=== PATIENT | female | born 1935 | race Caucasian/White ===

== ENCOUNTER → 2016-07-26 | Outpatient (CLI) | payer MEDICARE ==
[~2016-07-26] MED LIST: ALLO100T30 PO; AMLO10TA2 PO; ASPI-496 PO; ATOR20TA9 PO; CLOP75TA PO; DIPH1TAB PO; FENO45CA2 PO; FERR325C PO; FERR325T20 PO; FLUT1BLS INH; FURO-92 PO; GABA300C PO; GLIP10TA13 PO; HYDR-3307 PO; INSU100V13 SC; ISOS30TA8 PO; LEVO100T8 PO; LOSA25TA2 PO; MECL-85 PO; METO25TA35 PO; PROM25TA10 PO; RALO60TA PO; SITA25TA PO; TIOT18CA INH; UMEC62.5 INH
[2016-07-26 13:26] LABS: PTH INTACT INTERPRETATION ** Comment **
[2016-07-26 13:49] LABS: HEMOGLOBIN 12.9 g/dL (11.7-16.4)
[2016-07-26 13:52] LABS: PATH.CAST-FLAG NOT PRESENT; SPERM-FLAG NOT PRESENT; SRC-FLAG NOT PRESENT; XTAL-FLAG NOT PRESENT; YLC-FLAG NOT PRESENT
[2016-07-26 14:06] LABS: PARATHYROID HORMONE INTACT 73.1 pg/mL (14-72)
[2016-07-26 15:08] LABS: ASPARTATE AMINO TRANSFERASE 41 U/L (15-37); BLOOD UREA NITROGEN 36 mg/dL (7-18)
== END | disposition home or self-care (01) ==
LOC: LAB 13:17
PROVIDERS: ATTEND Internal Medicine Nephrology
DX: I12.9 Hypertensive chronic kidney disease with stage 1 through stage 4 chronic kidney disease, or unspecified chronic kidney disease (principal); E11.22 Type 2 diabetes mellitus with diabetic chronic kidney disease; N18.3 Chronic kidney disease, stage 3 (moderate); M10.9 Gout, unspecified; R80.3 Bence Jones proteinuria; E03.9 Hypothyroidism, unspecified; E78.2 Mixed hyperlipidemia; Z79.899 Other long term (current) drug therapy
CPT/HCPCS: 36415; 80053; 80061; 81001; 82306; 82310; 82570; 83036; 83970; 84100; 84156; 84443; 84550; 85025; 87077; 87086

== ENCOUNTER 2018-04-01 14:56 | Inpatient (IN) | payer MEDICARE ==
[~2018-04-01] VITALS: Ht 152.4 cm; Wt 156.3 kg
[~2018-04-01 14:56] MED LIST changes: -AMLO10TA2 PO; +AMLO10TA6 PO; +ATOR20TA37 PO; -ATOR20TA9 PO; +FERR325T18 PO; -FERR325T20 PO
[2018-04-01] MEDS ORDERED: DILTIAZEM 125 MG in DEXTROSE 5% 100 ML IV SCH (15:28)
[2018-04-01] MEDS ORDERED: SODIUM CHLORIDE FLUSH 10ML SYR IVF ONE (15:30)
[2018-04-01] MEDS ORDERED: DILTIAZEM 5 MG/ML, 5ML IV ONE (15:30)
[2018-04-01] MEDS ORDERED: DILTIAZEM 5 MG/ML, 5ML ONE (15:40)
[2018-04-01 16:03] LABS: BASOPHILS # (AUTO) 0.01 x10^3/uL (0-0.1); BASOPHILS % (AUTO) 0 % (0-1); EOSINOPHILS # (AUTO) 0.04 x10^3/uL (0-0.4); EOSINOPHILS % (AUTO) 1 % (1-7); LYMPHOCYTES # (AUTO) 1.08 x10^3/uL (1-3.4); LYMPHOCYTES % (AUTO) 13 % (22-44); MD NO; MEAN CORPUSCULAR HEMOGLOBIN 29.7 pg (27.0-34.8); MEAN CORPUSCULAR HGB CONC 32.3 g/dL (32.4-35.8); MEAN CORPUSCULAR VOLUME 92.1 fL (80-100); MONOCYTES # (AUTO) 0.81 x10^3/uL (0.2-0.8); MONOCYTES % (AUTO) 10 % (2-9); NEUTROPHILS # (AUTO) 6.42 x10^3/uL (1.8-6.8); NEUTROPHILS % (AUTO) 77 % (42-75); PLATELET COUNT 144 x10^3/uL (130-400); RED BLOOD COUNT 4.49 x10^6/uL (3.82-5.3); RED CELL DISTRIBUTION WIDTH 14.3 % (9.6-15.2)
[2018-04-01 16:16] LABS: ALBUMIN 3.3 g/dL (3.4-5.0); ANION GAP 10 mmol/L (5-15); CALCIUM 9.5 mg/dL (8.5-10.1); CHLORIDE 103 mmol/L (98-107)
[2018-04-01 16:19] LABS: INTERNATIONAL NORMALIZED RATIO 1.05 (0.93-1.1); PROTHROMBIN TIME 11.1 Seconds (9.6-11.5)
[2018-04-01 16:22] LABS: ALANINE AMINOTRANSFERASE 37 U/L (12-78); ALKALINE PHOSPHATASE 59 U/L (45-117); BILIRUBIN,TOTAL 0.4 mg/dL (0.2-1.0); CREATININE 1.78 mg/dL (0.55-1.02); FREE T4 (FREE THYROXINE) 1.45 ng/dL (0.76-1.46); TOTAL PROTEIN 7.6 g/dL (6.4-8.2); TROPONIN I < 0.015 ng/mL (0.000-0.045)
[2018-04-01] MEDS ORDERED: FURO40TA6 PO (16:36)
[2018-04-01] MEDS ORDERED: LEVO112T4 PO (16:36)
[2018-04-01] MEDS ORDERED: DIPH1TAB PO (16:36)
[2018-04-01] MEDS ORDERED: PANT40TA5 PO (16:36)
[2018-04-01 17:24] LABS: CULTURE INDICATED? YES; MICROSCOPIC INDICATED
[2018-04-01] MEDS ORDERED: SODIUM CHLORIDE FLUSH 10ML SYR IVF PRN (17:30)
[2018-04-01 19:00] VITALS: BP 136/90
[2018-04-01] MEDS ORDERED: CAPTOPRIL 12.5 MG TABLET PO PRN (19:30)
[2018-04-01] MEDS ORDERED: hydrALAzine 20 MG/ML, 1ML IVPush PRN (19:30)
[2018-04-01] MEDS ORDERED: BISACODYL 10 MG SUPP PR PRN (19:30)
[2018-04-01] MEDS ORDERED: ENALAPRILAT 1.25 MG/ML, 2ML IVPush PRN (19:30)
[2018-04-01] MEDS ORDERED: ONDANSETRON 2MG/ML, 2ML IV PRN (19:30)
[2018-04-01] MEDS ORDERED: MAGNESIUM SULFATE PMX 2GM/50ML 50 ML IV ONE (19:30)
[2018-04-01] MEDS ORDERED: ACETAMINOPHEN 650 MG/20.3 ML UDC PO PRN (19:30)
[2018-04-01 20:28] LABS: CHOLESTEROL, TOTAL 139 mg/dL (140-239); TRIGLYCERIDES 125 mg/dL (50-200); VLDL CHOLESTEROL 25 mg/dL (0-25)
[2018-04-01] MEDS: CEPHALEXIN 500 MG CAPSULE PO SCH (20:29)
[2018-04-01] MEDS: ALLOPURINOL 100 MG TABLET PO SCH (20:30)
[2018-04-01 20:31] LABS: CHOL/HDL RATIO 4.1; HDL CHOL % 24 % (28-40); HDL CHOLESTEROL (DIRECT) 34 mg/dL (40-60); LDL CHOLESTEROL,CALCULATED 80 mg/dL (54-169); LDL/HDL RATIO 2.4 (0.5-3.0); TROPONIN I < 0.015 ng/mL (0.000-0.045)
[2018-04-01] MEDS: FUROSEMIDE 40 MG TABLET PO SCH (20:31)
[2018-04-01] MEDS: GABAPENTIN 300 MG CAPSULE PO SCH (20:31)
[2018-04-01] MEDS: INSULIN LISPRO 100 UNITS/ML, PEN SQ-INSULIN SCH (20:59)
[2018-04-01] MEDS ORDERED: METOPROLOL TARTRATE 25 MG TABLET PO SCH (21:00)
[2018-04-02 01:23] LABS: TROPONIN I < 0.015 ng/mL (0.000-0.045)
[2018-04-02 03:55] VITALS: BP 125/79
[2018-04-02] MEDS: CEPHALEXIN 500 MG CAPSULE PO SCH ×2 (05:17→17:55)
[2018-04-02 05:21] LABS: BASOPHILS # (AUTO) 0.02 x10^3/uL (0-0.1); BASOPHILS % (AUTO) 0 % (0-1); EOSINOPHILS % (AUTO) 1 % (1-7); LYMPHOCYTES # (AUTO) 1.38 x10^3/uL (1-3.4); LYMPHOCYTES % (AUTO) 19 % (22-44); MD NO; MEAN CORPUSCULAR HEMOGLOBIN 30.2 pg (27.0-34.8); MEAN CORPUSCULAR HGB CONC 33.1 g/dL (32.4-35.8); MEAN CORPUSCULAR VOLUME 91.4 fL (80-100); MONOCYTES # (AUTO) 0.82 x10^3/uL (0.2-0.8); MONOCYTES % (AUTO) 11 % (2-9); NEUTROPHILS # (AUTO) 4.95 x10^3/uL (1.8-6.8); NEUTROPHILS % (AUTO) 68 % (42-75); PLATELET COUNT 134 x10^3/uL (130-400); RED BLOOD COUNT 4.06 x10^6/uL (3.82-5.3); RED CELL DISTRIBUTION WIDTH 13.9 % (9.6-15.2)
[2018-04-02 05:25] LABS: ANION GAP 9 mmol/L (5-15); CALCIUM 8.8 mg/dL (8.5-10.1); CHLORIDE 103 mmol/L (98-107)
[2018-04-02 05:33] LABS: TROPONIN I < 0.015 ng/mL (0.000-0.045)
[2018-04-02 05:36] LABS: HEMOGLOBIN A1C 9.1 % (4.2-6.3)
[2018-04-02] MEDS: ALBUTEROL/IPRATROPIUM 2.5MG/0.5MG, 3 ML NPPB SCH ×4 (06:45→20:00)
[2018-04-02] MEDS: INSULIN LISPRO 100 UNITS/ML, PEN SQ-INSULIN SCH ×4 (07:46→21:28)
[2018-04-02 08:00] VITALS: BP 92/66
[2018-04-02] MEDS ORDERED: ACETAMINOPHEN 325 MG TABLET PO PRN (08:30)
[2018-04-02] MEDS ORDERED: CLOPIDOGREL 75 MG TABLET PO SCH (09:00)
[2018-04-02] MEDS ORDERED: ATORVASTATIN 20 MG TABLET PO SCH (09:00)
[2018-04-02 09:40] VITALS: BP 107/73
[2018-04-02] MEDS: METOPROLOL TARTRATE 25 MG TABLET PO SCH ×2 (10:05→21:27)
[2018-04-02] MEDS: ISOSORBIDE MONONITRATE ER 30 MG TABLET PO SCH (10:05)
[2018-04-02] MEDS: LEVOTHYROXINE 112 MCG TABLET PO SCH (10:05)
[2018-04-02] MEDS: GABAPENTIN 300 MG CAPSULE PO SCH ×3 (10:05→21:27)
[2018-04-02] MEDS: ALLOPURINOL 100 MG TABLET PO SCH ×2 (10:05→21:27)
[2018-04-02] MEDS: NYSTATIN TOPICAL POWDER 15GM TP SCH ×2 (10:06→21:28)
[2018-04-02] MEDS: FUROSEMIDE 40 MG TABLET PO SCH ×2 (10:06→21:28)
[2018-04-02] MEDS: PANTOPROZOLE 40MG TABLET PO SCH (11:35)
[2018-04-02 13:44] VITALS: BP 140/77
[2018-04-02] MEDS ORDERED: DILTIAZEM 125 MG in DEXTROSE 5% 100 ML IV SCH (15:28)
[2018-04-02] MEDS ORDERED: POTASSIUM CHLORIDE 20 MEQ TAB.ER.PRT PO SCH (17:00)
[2018-04-02] MEDS ORDERED: RIVAROXABAN 20 MG TABLET PO SCH (17:00)
[2018-04-02] MEDS: RIVAROXABAN 15 MG TABLET PO SCH (17:55)
[2018-04-02 19:41] VITALS: BP 120/67
[2018-04-02 21:24] VITALS: BP 101/68
[2018-04-02] MEDS: ATORVASTATIN 20 MG TABLET PO SCH (21:27)
[2018-04-02] MEDS: INSULIN NPH HUMAN 100 UNIT/ML, 3ML VIAL SQ-INSULIN SCH (21:30)
[2018-04-03 00:46] VITALS: BP 101/64
[2018-04-03] MEDS: CEPHALEXIN 500 MG CAPSULE PO SCH ×2 (05:15→17:17)
[2018-04-03] MEDS: INSULIN LISPRO 100 UNITS/ML, PEN SQ-INSULIN SCH ×4 (07:00→21:55)
[2018-04-03 07:47] VITALS: BP 123/74
[2018-04-03] MEDS: ALBUTEROL/IPRATROPIUM 2.5MG/0.5MG, 3 ML NPPB SCH ×4 (07:52→19:46)
[2018-04-03] MEDS: LEVOTHYROXINE 112 MCG TABLET PO SCH (09:12)
[2018-04-03] MEDS: GABAPENTIN 300 MG CAPSULE PO SCH ×3 (09:12→21:56)
[2018-04-03] MEDS: PANTOPROZOLE 40MG TABLET PO SCH (09:13)
[2018-04-03] MEDS: NYSTATIN TOPICAL POWDER 15GM TP SCH ×2 (09:13→21:56)
[2018-04-03] MEDS: ISOSORBIDE MONONITRATE ER 30 MG TABLET PO SCH (09:13)
[2018-04-03] MEDS: FUROSEMIDE 40 MG TABLET PO SCH ×2 (09:13→21:56)
[2018-04-03] MEDS: ALLOPURINOL 100 MG TABLET PO SCH ×2 (09:13→21:56)
[2018-04-03] MEDS: METOPROLOL TARTRATE 25 MG TABLET PO SCH ×2 (09:13→21:55)
[2018-04-03 13:42] VITALS: BP 116/68
[2018-04-03] MEDS: RIVAROXABAN 15 MG TABLET PO SCH (17:17)
[2018-04-03 19:50] VITALS: BP 102/51
[2018-04-03] MEDS: INSULIN NPH HUMAN 100 UNIT/ML, 3ML VIAL SQ-INSULIN SCH (21:54)
[2018-04-03] MEDS: ATORVASTATIN 20 MG TABLET PO SCH (21:55)
[2018-04-04 01:54] VITALS: BP 144/51
[2018-04-04] MEDS: CEPHALEXIN 500 MG CAPSULE PO SCH (05:49)
[2018-04-04] MEDS: ALBUTEROL/IPRATROPIUM 2.5MG/0.5MG, 3 ML NPPB SCH ×3 (06:30→14:00)
[2018-04-04 07:24] LABS: BASOPHILS # (AUTO) 0.04 x10^3/uL (0-0.1); BASOPHILS % (AUTO) 1 % (0-1); EOSINOPHILS # (AUTO) 0.27 x10^3/uL (0-0.4); EOSINOPHILS % (AUTO) 4 % (1-7); LYMPHOCYTES # (AUTO) 2.21 x10^3/uL (1-3.4); LYMPHOCYTES % (AUTO) 31 % (22-44); MD NO; MEAN CORPUSCULAR HEMOGLOBIN 29.6 pg (27.0-34.8); MEAN CORPUSCULAR HGB CONC 32.8 g/dL (32.4-35.8); MEAN CORPUSCULAR VOLUME 90.5 fL (80-100); MEAN PLATELET VOLUME 10.2 fL (7.4-10.4); MONOCYTES # (AUTO) 0.88 x10^3/uL (0.2-0.8); MONOCYTES % (AUTO) 12 % (2-9); NEUTROPHILS # (AUTO) 3.66 x10^3/uL (1.8-6.8); NEUTROPHILS % (AUTO) 52 % (42-75); PLATELET COUNT 147 x10^3/uL (130-400); RED BLOOD COUNT 4.18 x10^6/uL (3.82-5.3)
[2018-04-04 07:45] VITALS: BP 120/64
[2018-04-04] MEDS ORDERED: LEVOTHYROXINE 175 MCG TABLET ONE (08:09)
[2018-04-04] MEDS: INSULIN LISPRO 100 UNITS/ML, PEN SQ-INSULIN SCH ×3 (08:15→16:27)
[2018-04-04] MEDS: ALLOPURINOL 100 MG TABLET PO SCH (08:15)
[2018-04-04] MEDS: METOPROLOL TARTRATE 25 MG TABLET PO SCH (08:16)
[2018-04-04] MEDS: ISOSORBIDE MONONITRATE ER 30 MG TABLET PO SCH (08:17)
[2018-04-04] MEDS: PANTOPROZOLE 40MG TABLET PO SCH (08:17)
[2018-04-04] MEDS: GABAPENTIN 300 MG CAPSULE PO SCH ×2 (08:17→16:26)
[2018-04-04] MEDS: FUROSEMIDE 40 MG TABLET PO SCH (08:17)
[2018-04-04] MEDS: NYSTATIN TOPICAL POWDER 15GM TP SCH (08:18)
[2018-04-04] MEDS ORDERED: NITROFURANTOIN (MACROBID) 100 MG CAPSULE PO SCH (09:00)
[2018-04-04 09:26] LABS: ANION GAP 9 mmol/L (5-15); CALCIUM 8.6 mg/dL (8.5-10.1); CHLORIDE 101 mmol/L (98-107)
[2018-04-04] MEDS: LEVOTHYROXINE 112 MCG TABLET PO SCH (09:55)
[2018-04-04 13:50] VITALS: BP 111/78
[2018-04-04] MEDS ORDERED: NITR100C6 PO (13:56)
[2018-04-04] MEDS ORDERED: METO25TA35 PO (13:56)
[2018-04-04] MEDS ORDERED: RIVA15TA PO (13:56)
[2018-04-04] MEDS ORDERED: RIVAROXABAN 20 MG TABLET ONE (16:55)
[2018-04-04] MEDS: RIVAROXABAN 15 MG TABLET PO SCH (17:08)
== END 2018-04-04 19:48 | DRG 690 ==
LOC: ED 17:00 → EDIP 17:01 → ED 17:14 → 5SO 18:52
PROVIDERS: ADMIT Family Medicine; ATTEND Family Medicine
DX: N39.0 Urinary tract infection, site not specified (principal); I13.0 Hypertensive heart and chronic kidney disease with heart failure and stage 1 through stage 4 chronic kidney disease, or unspecified chronic kidney disease; D68.69 Other thrombophilia; I50.32 Chronic diastolic (congestive) heart failure; Z68.44 Body mass index [BMI] 60.0-69.9, adult; I25.10 Atherosclerotic heart disease of native coronary artery without angina pectoris; I48.91 Unspecified atrial fibrillation; B37.2 Candidiasis of skin and nail; I50.9 Heart failure, unspecified; E11.22 Type 2 diabetes mellitus with diabetic chronic kidney disease; N18.3 Chronic kidney disease, stage 3 (moderate); E03.9 Hypothyroidism, unspecified; J44.9 Chronic obstructive pulmonary disease, unspecified; E66.01 Morbid (severe) obesity due to excess calories; Z88.8 Allergy status to other drugs, medicaments and biological substances; E78.00 Pure hypercholesterolemia, unspecified; E78.5 Hyperlipidemia, unspecified; I25.2 Old myocardial infarction; M10.9 Gout, unspecified; M81.0 Age-related osteoporosis without current pathological fracture; R62.7 Adult failure to thrive; Z66 Do not resuscitate; Z85.828 Personal history of other malignant neoplasm of skin; Z86.73 Personal history of transient ischemic attack (TIA), and cerebral infarction without residual deficits; Z87.891 Personal history of nicotine dependence; Z90.710 Acquired absence of both cervix and uterus; Z96.653 Presence of artificial knee joint, bilateral; Z79.4 Long term (current) use of insulin; Z79.82 Long term (current) use of aspirin; Z79.899 Other long term (current) drug therapy; Z82.49 Family history of ischemic heart disease and other diseases of the circulatory system; Z83.6 Family history of other diseases of the respiratory system; Z83.3 Family history of diabetes mellitus; Z80.42 Family history of malignant neoplasm of prostate
CPT/HCPCS: 36415; 71045; 80048; 80053; 80061; 81001; 82962; 83036; 83735; 83880; 84439; 84443; 84484; 85025; 85610; 85730; 87077; 87086; 87186; 90656; 93005; 93306; 94640; 96374; 99285; G0378; J1815; J7620; J3475